=== PATIENT | male | born 1980 | race Caucasian/White ===

== ENCOUNTER 2020-04-04 06:50 | Outpatient (NON) | payer OTHER, SELFPAY ==
[2020-04-04 23:48] LABS: SARS-CoV-2 RNA PCR Negative
== END 2020-04-04 06:51 ==
LOC: ANHCOVIDDT 07:03
PROVIDERS: PCP Family Medicine; Visit Provider Nurse Practitioner Family
DX: Z20.828 Contact with and (suspected) exposure to other viral communicable diseases (principal)
CPT/HCPCS: 87635; C9803; U0003

== ENCOUNTER 2021-05-22 14:16 | Emergency (ER) | payer OTHER, SELFPAY ==
--- NOTE | ~2021-05-22 | XR_ITS ---
EXAMINATION: XR chest 1V portable EXAM DATE: 05/22/2021 20:10 INDICATION: Sternal Dull Chest Pressure,SOB,Cough,Congestion,Josh 2 COVID TECHNIQUE: Portable AP frontal chest x-ray was obtained. Comparison is made to prior examination from 04/02/2014. FINDINGS: The lungs are clear. There are no pleural effusions. The cardiomediastinal silhouette is within normal limits. There is no pneumothorax suspected. The bones and soft tissues are unremarkab le. IMPRESSION: No acute cardiopulmonary findings. Reviewed, dictated and finalized at location A. [facility]
[2021-05-22 14:34] VITALS: BP 147/96; PULSE 92; RESP 20; TEMP 36.9; O2SAT 100
[2021-05-22 19:19] VITALS: BP 140/94; PULSE 83; TEMP 36.3; O2SAT 100
[2021-05-22 19:35] VITALS: BP 132/91; PULSE 83; RESP 19; TEMP 36.7; O2SAT 99
[2021-05-22 20:48] LABS: Basophils Percent Auto 0.3 % (0.2-1.2); Hematocrit 42.7 % (42.0-52.0); Hemoglobin 14.5 g/dL (14.0-18.0); Immature Granulocyte Absolute 0.08 K/mm3 (0.00-0.031); Immature Granulocyte Percent A 2.2 % (0-0.5); Lymphocytes Absolute Auto 0.85 K/mm3 (0.9-3.2); Lymphocytes Percent Auto 22.9 % (18.3-44.2); Mean Corpuscular Hemoglobin 30.9 pg (26-34); Mean Platelet Volume 10.4 fl (7.4-10.4); Monocytes Absolute Auto 0.3 K/mm3 (0.1-0.6); Monocytes Percent Auto 9.2 % (2.6-8.5); Neutrophils Absolute Auto 2.4 K/mm3 (1.3-6.7); Neutrophils Percent Auto 65.4 % (45.5-73.1); Platelet Count Result 250 k/mm3 (150-375); Red Blood Count 4.69 M/mm3 (4.6-6.20); Red Cell Distribution Width 11.8 % (11.5-14.5); White Blood Count 3.7 K/mm3 (4.5-10.0)
[2021-05-22 20:57] LABS: Alanine Aminotransferase 20 U/L (4-50); Albumin Level 4.7 g/dL (3.5-5.1); Alkaline Phosphatase 70 U/L (38-126); Anion Gap 10 mmol/L (8-16); Aspartate Amino Transferase 29 U/L (17-59); Bilirubin,Total 0.5 mg/dL (0.2-1.3); Blood Urea Nitrogen 12 mg/dL (9-20); Calcium 9.4 mg/dL (8.4-10.2); Carbon Dioxide 27 mmol/L (22-30); Chloride 99 mmol/L (98-107); Estimated CRCL calculation 114 ml/min; Estimated Glomerular Filt Rate > 60; Glucose 112 mg/dL (65-110); Potassium 4.1 mmol/L (3.4-5.0); Sodium 136 mmol/L (137-145)
--- NOTE | 2021-05-22 20:58 | ED.URI ---
HPI - URI/Sore Throat General Chief Complaint: Upper Respiratory Infection Stated Complaint: COVID+ SOB Time Seen by Provider: 05/22/21 19:49 Source: patient Mode of arrival: ambulatory Limitations: no limitations History of Present Illness HPI Narrative: 40-year-old with no major medical problems diagnosed with Covid few days ago here with complaints of shortness of breath. Patient states that he went to urgent care was given steroids and doxycycline. Patient still continues to have body aches, fever and difficulty breathing at times however his SPO2 has been in 95- 96. He has not been vaccinated. MD elicited complaint: fever and cough Onset (ago): day(s) (4) Consistency: constant Severity: moderate Exacerbating factors: nothing Relieving factors: NSAID Treatments prior to arrival: acetaminophen and ibuprofen Related Data Home Medications Medication Instructions Recorded Confirmed Zyrtec 10 mg PO DAILY 04/21/19 04/22/19 albuterol sulfate 90 mcg/actuation 1 puff INHALATION Q4H PRN 05/26/19 aerosol inhaler multivitamin 1 tablet PO DAILY 05/26/19 omeprazole 40 mg PO PRN PRN 05/22/21 Allergies Allergy/AdvReac Type Severity Reaction Status Date / Time aspirin AdvReac Unknown Heartburn Verified 05/22/21 19:39 Review of Systems Review of Systems: All systems reviewed & are unremarkable except as noted in HPI and below Constitutional: Constitutional: Reports no additional constitutional complaints Eyes: Eyes: Reports no additional eye complaints ENT: Reports system reviewed and no additional complaints, except as documented Cardiovascular: Cardiovascular: Reports no additional cardiovascular complaints Respiratory: Respiratory: Reports as per HPI Gastrointestinal: Gastrointestinal: Reports no additional gastrointestinal complaints Musculoskeletal: Musculoskeletal: Reports no additional musculoskeletal complaints Integumentary/Breasts: Skin/Breast: Reports system reviewed and no additional complaints, except as docu Neurologic: Reports system reviewed and no additional complaints, except as documented PMFSH Past Medical History Medical History Asthma Bronchitis GERD (gastroesophageal reflux disease) Social History Social History Smoking status: Former smoker Alcohol intake: current Exam Narrative: GENERAL: Well-appearing, well-nourished, and in no acute distress. HEAD: Normocephalic, atraumatic. EYES: PERRLA and EOMI. NECK: Supple. CHEST: Clear to auscultation. No respiratory distress. HEART: Regular rate and rhythm. No murmur heard. Normal peripheral pulses.. EXTREMITIES: Normal range of motion. No edema. SKIN: Warm, dry, no rash. NEURO: No focal deficits. Alert and oriented x3. PSYCH: Normal mood and affect. Course Course Emergency Course: Inform patient about his lab work, x-ray findings. Advised him to continue to take Tylenol ibuprofen for body aches and fever. Plenty of fluids. Keep monitoring his oxygen Vital Signs Vital signs: Vital Signs Temperature 36.9 C 05/22/21 14:34 Pulse Rate 92 05/22/21 14:34 Respiratory Rate 20 05/22/21 14:34 Blood Pressure 147/96 H 05/22/21 14:34 Pulse Oximetry 100 05/22/21 14:34 Temperature 36.7 C 05/22/21 19:35 Pulse Rate 83 05/22/21 19:35 Respiratory Rate 19 05/22/21 19:35 Blood Pressure 132/91 H 05/22/21 19:35 Pulse Oximetry 99 05/22/21 19:35 MDM - URI/Sore Throat Lab Data Result diagrams: 05/22/21 20:23 05/22/21 20:23 Labs: Lab Results 05/22/21 05/22/21 Range/Units 20:23 20:23 WBC 3.7 L (4.5-10.0) K/mm3 RBC 4.69 (4.6-6.20) M/mm3 Hgb 14.5 (14.0-18.0) g/dL Hct 42.7 (42.0-52.0) % MCV 91.0 (80-100) fl MCH 30.9 (26-34) pg MCHC 34.0 (32-36) g/dl RDW 11.8 (11.5-14.5) % Plt Count 250 (150-375) k/mm3 MPV 10.4 (7.4-10.4) f
== END 2021-05-22 21:08 | disposition home or self-care (01) ==
PROVIDERS: Emergency Provider Family Medicine
DX: U07.1 COVID-19 (principal); J45.909 Unspecified asthma, uncomplicated; K21.9 Gastro-esophageal reflux disease without esophagitis
CPT/HCPCS: 36415; 71045; 80053; 85025; 99283

== ENCOUNTER 2021-12-24 15:44 | Emergency (ER) | payer OTHER, SELFPAY ==
--- NOTE | 2021-12-24 15:49 | ED.SKABFB ---
HPI - Skin/Abscess/Foreign Bdy General Chief complaint: Skin/Abscess/Foreign Body Stated complaint: INSECT BITE TO LOWER R LEG Time Seen by Provider: 12/24/21 15:49 Source: patient and RN notes reviewed Related Data Home Medications Medication Instructions Recorded Confirmed cetirizine 10 mg capsule (Zyrtec) 10 mg PO DAILY 04/21/19 04/22/19 albuterol sulfate 90 mcg/actuation 1 puff inhalation Q4H PRN 05/26/19 aerosol inhaler (ProAir HFA) Shortness Of Breath multivitamin 1 tablet PO DAILY 05/26/19 omeprazole 40 mg capsule,delayed 40 mg PO PRN PRN Heartburn 05/22/21 release Allergies Allergy/AdvReac Type Severity Reaction Status Date / Time aspirin AdvReac Unknown Heartburn Verified 05/22/21 19:39 Review of Systems Review of Systems: CONSTITUTIONAL: Denies fever, chills, or sweats. EYES: Denies visual changes, redness, or discharge. ENT: Denies rhinorrhea, congestion, sore throat, or otalgia. CARDIOVASCULAR: Denies chest pain, palpitations, or edema. RESPIRATORY: Denies cough or dyspnea. GASTROINTESTINAL: Denies abdominal pain, nausea, vomiting, or diarrhea. GENITOURINARY: Denies dysuria or hematuria. SKIN: Denies rash or itching. MUSCULOSKELETAL: Denies back pain, joint pain, or myalgia. NEUROLOGIC: Denies headache, numbness, or weakness. All other systems reviewed are negative, except as documented in HPI. [facility] Past Medical History Medical History Asthma Bronchitis GERD (gastroesophageal reflux disease) Social History Social History Smoking status: Former smoker Alcohol intake: current Comments At the time of my signature, I reviewed and agree with the nursing past medical, surgical, social, and family history. There is no relevant family history pertinent to the patient complaint. Exam Narrative: GENERAL: This is a well-nourished, well-developed patient, in no apparent distress. HEAD: normocephalic, atraumatic. EYES: PERRL. Sclera clear/white. Vision is grossly intact. EARS: External ears normal, auditory canals clear and without drainage, TMs normal without perforation. Hearing grossly intact. NOSE: External nose normal with no obvious nasal discharge, nares without redness, no rhinorrhea. THROAT: Mucous membranes moist, posterior pharynx clear. NECK: Neck supple, non-tender without lymphadenopathy, masses or thyromegaly. CARDIOVASCULAR: Regular rate and rhythm without murmurs, gallops, or rubs. RESPIRATORY: Clear to auscultation. Breath sounds equal bilaterally. No wheezes, rales, or rhonchi. GASTROINTESTINAL: Abdomen soft, non-tender, nondistended. Bowel sounds are active. No hepato-splenomegaly, or palpable masses. No guarding. SKIN: warm, intact with no suspicious lesions or rash, good texture and turgor. NEURO: awake, alert, and oriented to person, place and time. There were no obvious focal neurologic abnormalities. EXTREMITIES: No clubbing, cyanosis, or edema. No joint tenderness, effusion, or edema noted. No calf tenderness. Negative Homans sign bilaterally. BACK: Nontender without deformity or crepitance. No flank tenderness. Course Course Level of Care: Express Care Visit Vital Signs Vital signs: Vital Signs Temperature 98.7 F 12/24/21 15:51 Pulse Rate 89 12/24/21 15:51 Respiratory Rate 16 12/24/21 15:51 Blood Pressure 131/93 H 12/24/21 15:51 Pulse Oximetry 100 12/24/21 15:51 Oxygen Delivery Room Air 12/24/21 15:51 Temperature 98.7 F 12/24/21 15:51 Pulse Rate 89 12/24/21 15:51 Respiratory Rate 16 12/24/21 15:51 Blood Pressure 131/93 H 12/24/21 15:51 Pulse Oximetry 100 12/24/21 15:51 Oxygen Delivery Room Air 12/24/21 15:51 Reviewed-patient is informed that they may have pre-hypertension or hypertension based on a blood pressure reading in the department. I recommend the patient call the primary care provider listed on their discharge i
[2021-12-24 15:51] VITALS: BP 131/93; PULSE 89; RESP 16; TEMP 37.1; O2SAT 100
--- NOTE | 2021-12-24 16:11 | ED.SKABFB ---
HPI - Skin/Abscess/Foreign Bdy General Chief complaint: Skin/Abscess/Foreign Body Stated complaint: INSECT BITE TO LOWER R LEG Time Seen by Provider: 12/24/21 15:49 Source: patient and RN notes reviewed History of Present Illness HPI narrative: Patient is a 41-year-old male who presents the urgent care with complaints of an insect bite to the right lower leg. Patient states that he noticed it early last week after he had been out in [place]. Patient states he never removed the tick but does believe that he may have gotten bitten by something while in [place]. Patient states that it itches and is seem to have grown in size and redness in the last few days. Patient states he has been taking Benadryl and using cortisone cream. Denies any fever, headache, fatigue or lethargy. No other acute complaints. No acute distress noted. Patient aware of the plan of care. Some parts of this dictation were generated by voice recognition software and may contain typographical and/or grammatical inaccuracies. Related Data Home Medications Medication Instructions Recorded Confirmed cetirizine 10 mg capsule (Zyrtec) 10 mg PO DAILY 04/21/19 04/22/19 albuterol sulfate 90 mcg/actuation 1 puff inhalation Q4H PRN 05/26/19 aerosol inhaler (ProAir HFA) Shortness Of Breath multivitamin 1 tablet PO DAILY 05/26/19 omeprazole 40 mg capsule,delayed 40 mg PO PRN PRN Heartburn 05/22/21 release Allergies Allergy/AdvReac Type Severity Reaction Status Date / Time aspirin AdvReac Unknown Heartburn Verified 05/22/21 19:39 Review of Systems Review of Systems: CONSTITUTIONAL: Denies fever, chills, or sweats. EYES: Denies visual changes, redness, or discharge. ENT: Denies rhinorrhea, congestion, sore throat, or otalgia. CARDIOVASCULAR: Denies chest pain, palpitations, or edema. RESPIRATORY: Denies cough or dyspnea. GASTROINTESTINAL: Denies abdominal pain, nausea, vomiting, or diarrhea. GENITOURINARY: Denies dysuria or hematuria. SKIN: Reports of an insect bite to the right lower leg MUSCULOSKELETAL: Denies back pain, joint pain, or myalgia. NEUROLOGIC: Denies headache, numbness, or weakness. All other systems reviewed are negative, except as documented in HPI. PMFSH Past Medical History Medical History Asthma Bronchitis GERD (gastroesophageal reflux disease) Social History Social History Smoking status: Former smoker Alcohol intake: current Comments At the time of my signature, I reviewed and agree with the nursing past medical, surgical, social, and family history. There is no relevant family history pertinent to the patient complaint. Exam Narrative: GENERAL: This is a well-nourished, well-developed patient, in no apparent distress. HEAD: normocephalic, atraumatic. EYES: PERRL. Sclera clear/white. Vision is grossly intact. EARS: External ears normal NOSE: External nose normal with no obvious nasal discharge, nares without redness, no rhinorrhea. THROAT: Mucous membranes moist NECK: Neck supple, SKIN: 2.5 irregular erythemic bull's-eye rash to the right medial calf. Warm, intact with no suspicious lesions or rash, good texture and turgor. NEURO: awake, alert, and oriented to person, place and time. There were no obvious focal neurologic abnormalities. EXTREMITIES: No clubbing, cyanosis, or edema. Course Course Level of Care: Express Care Visit Vital Signs Vital signs: Vital Signs Temperature 98.7 F 12/24/21 15:51 Pulse Rate 89 12/24/21 15:51 Respiratory Rate 16 12/24/21 15:51 Blood Pressure 131/93 H 12/24/21 15:51 Pulse Oximetry 100 12/24/21 15:51 Oxygen Delivery Room Air 12/24/21 15:51 Temperature 98.7 F 12/24/21 15:51 Pulse Rate 89 12/24/21 15:51 Respiratory Rate 16 12/24/21 15:51 Blood Pressure 131/93 H 12/24/21 15:51 Pulse Oximetry 100 12/24/21 15:51 Oxygen Delivery Room Air
== END 2021-12-24 16:21 | disposition home or self-care (01) ==
PROVIDERS: Emergency Provider Nurse Practitioner Family; PCP Family Medicine
DX: S80.861A Insect bite (nonvenomous), right lower leg, initial encounter (principal); W57.XXXA Bitten or stung by nonvenomous insect and other nonvenomous arthropods, initial encounter; Z87.891 Personal history of nicotine dependence; J45.909 Unspecified asthma, uncomplicated; K21.9 Gastro-esophageal reflux disease without esophagitis
CPT/HCPCS: 99213; G0463

== ENCOUNTER 2023-08-16 10:36 | Emergency (ER) | payer OTHER, SELFPAY ==
--- NOTE | 2023-08-16 10:42 | ED.GENADULT ---
HPI - General Adult General Chief complaint: Upper Respiratory Infection Stated complaint: SORE THROAT/COUGH/FEVER/CONGESTION Time Seen by Provider: 08/16/23 10:42 Source: patient Mode of arrival: ambulatory Limitations: no limitations History of Present Illness HPI narrative: 43-year-old male patient presents to the [facility] with complaints of fevers, body aches, chills, cough, runny nose and congestion for the past 3 days. Patient states his son had something similar and lasted for about 3 days and then he is much better at this time. Patient states he thinks he has been running fevers but has not measured his temperature. Patient states he has had some diarrhea denies any abdominal pain denies any vomiting or nausea currently. Patient states he has been taking [id number] Tylenol and ibuprofen for symptoms. Related Data Home Medications Medication Instructions Recorded Confirmed sertraline 25 mg tablet 25 mg PO DAILY 08/16/23 08/16/23 Allergies Allergy/AdvReac Type Severity Reaction Status Date / Time aspirin AdvReac Unknown Heartburn Verified 08/16/23 10:55 Review of Systems Review of Systems: CONSTITUTIONAL: Positive fever, chills, body aches and sweats. EYES: Denies visual changes, redness, or discharge. ENT: positive rhinorrhea, congestion, sore throat, deniesotalgia. CARDIOVASCULAR: Denies chest pain, palpitations, or edema. RESPIRATORY: positive cough , denies dyspnea. GASTROINTESTINAL: Denies abdominal pain, nausea, vomiting, positive diarrhea. GENITOURINARY: Denies dysuria or hematuria. SKIN: Denies rash or itching. MUSCULOSKELETAL: Denies back pain, joint pain, or myalgia. NEUROLOGIC: Denies headache, numbness, or weakness. PSYCHIATRIC: Denies anxiety or depression. [facility] Past Medical History Medical History (Updated 08/16/23 @ 11:30 by GERSON Apodaca) Anxiety Asthma Bronchitis GERD (gastroesophageal reflux disease) Social History Social History Smoking status: Former smoker Alcohol intake: current Comments at the time of my signature I agree with nursing past medical history, surgical, social, and family history. There is no relevant family history pertinent to the presenting complaint. Exam Narrative: GENERAL: Well-appearing, well-nourished, and in no acute distress. HEAD: Normocephalic, atraumatic. EYES: PERRLA and EOMI. ENT: Nares with edema and left nostril completely swollen shut, clear rhinorrhea no epistaxis. Mucous membranes moist. posterior pharynx with slight erythema and postnasal drip. No tonsillar enlargement, no exudates or lesions present. Bilateral TMs are clear no erythema or foreign bodies the canal. NECK: Supple. No lymphadenopathy CHEST: Clear to auscultation. No respiratory distress. HEART: Regular rate and rhythm. No murmur heard. Normal peripheral pulses. ABDOMEN: Soft, nontender, nondistended, normal active bowel sounds. EXTREMITIES: Normal range of motion. No edema. SKIN: Warm, dry, no rash. NEURO: No focal deficits. Alert and oriented x3. Course Course Level of Care: Express Care Visit Reevaluation(s) Reevaluation #1: Re-evaluated patient notified him he has positive today for influenza B. Patient is within the time frame to receiving antivirals and did offer him Tamiflu for symptoms. Discussed with him the benefits and risk of taking the Tamiflu as well as side effects. Patient has opted to go ahead and start the antiviral treatment. Patient denies needing a work note for the next couple of days. Date: 08/16/23 Time: 11:33 Vital Signs Vital signs: Vital Signs Temperature 35.7 C L 08/16/23 10:43 Pulse Rate 78 08/16/23 10:43 Respiratory Rate 16 08/16/23 10:43 Blood Pressure 126/75 08/16/23 10:43 Pulse Oximetry 99 08/16/23 10:43 Temperature 35.7 C L 08/16/23 10:43 Pulse Rate 78 08/16/23 10:43 Respiratory Rate 16 08/16/23 10:43
[2023-08-16 10:43] VITALS: BP 126/75; PULSE 78; RESP 16; TEMP 35.7; O2SAT 99
== END 2023-08-16 11:34 | disposition home or self-care (01) ==
PROVIDERS: Emergency Provider Nurse Practitioner Family
DX: J10.1 Influenza due to other identified influenza virus with other respiratory manifestations (principal); Z20.822 Contact with and (suspected) exposure to COVID-19; K21.9 Gastro-esophageal reflux disease without esophagitis; F41.9 Anxiety disorder, unspecified
CPT/HCPCS: 87081; 87426; 87804; 87880; 99213; G0463

== ENCOUNTER 2023-12-31 14:41 | Emergency (ER) | payer OTHER, SELFPAY ==
--- NOTE | ~2023-12-31 | XR_ITS ---
XR finger 2nd LT min 2V Ordering provider: Nika Willoughby APRN History: . pt cut tip in finger with hammer,skin flap deep laceration . Comparison: None. FINDINGS: BONES: No acute fracture or dislocation. JOINT SPACES: Normal. SOFT TISSUES: Normal. IMPRESSION: No acute osseous abnormality. Reviewed, dictated and finalized at location A.
[2023-12-31 14:50] VITALS: BP 134/86; PULSE 89; RESP 14; TEMP 36.6; O2SAT 99
--- NOTE | 2023-12-31 17:43 | ED.GENADULT ---
HPI - General Adult General Chief complaint: Wound/Laceration Stated complaint: Left Index Finger Injury Time Seen by Provider: 12/31/23 14:59 Source: patient, RN notes reviewed and old records reviewed Mode of arrival: ambulatory Limitations: no limitations History of Present Illness HPI narrative: 43-year-old male to Express Care with complaint of left distal thumb pain. Patient reports that he accidentally smashed distal left thumb with a rubber mallet earlier today. Patient reports having a part of his fingertip hanging off after injury that he removed with scissors from his 1st aid kit. Patient states that he then used livestock bleed stop On the wound to help discontinue bleeding. Patient states that he had intentions of not seeking care but that his fiancee insisted he be seen in clinic. Patient endorsing mild discomfort to left distal thumb. Patient denies decrease in range of motion, numbness, tingling, weakness. patient calm cooperative in exam room. Patient in no acute distress. Related Data Allergies Allergy/AdvReac Type Severity Reaction Status Date / Time aspirin AdvReac Unknown Heartburn Verified 12/31/23 16:31 Review of Systems Review of Systems: All systems reviewed & are unremarkable except as noted in HPI and below Constitutional: Constitutional: Reports no additional constitutional complaints Eyes: Eyes: Reports no additional eye complaints ENT: Reports system reviewed and no additional complaints, except as documented Cardiovascular: Cardiovascular: Reports no additional cardiovascular complaints, Denies chest pain and Denies dyspnea Respiratory: Respiratory: Reports no additional respiratory complaints, Denies cough and Denies dyspnea Musculoskeletal: Musculoskeletal: Reports no additional musculoskeletal complaints Neurologic: Reports system reviewed and no additional complaints, except as documented Psychiatric: Psychiatric: Reports no additional psychiatric complaints PMF Past Medical History Medical History (Updated 12/31/23 @ 16:07 by Nika Willoughby APRN) Anxiety Asthma Bronchitis GERD (gastroesophageal reflux disease) Social History Social History Smoking status: Former smoker Alcohol intake: current Comments At the time of my signature, I reviewed and agree with the nursing past medical, surgical, social, and family history. There is no relevant family history pertinent to the patient complaint. Exam Const: General: cooperative, healthy appearing, comfortable, no acute distress, alert and well nourished Nutritional Appearance: well nourished Orientation/consciousness: patient oriented x3 Limitations: no limitations HENMT: Head: normal to inspection Ears: external ears normal Face/Nose/Sinus: Normal external nose present, Normal nares present, normal facial exam, No erythema and No edema Face and sinus: normal facial exam, no erythema and no edema Mouth: Yes Normal oral and palatal mucosa present Eyes: General: appearance normal, both eyes and all related structures Neck: Neck: normal visual inspection, full ROM and no meningeal signs Lymphatic: no lymphadenopathy noted and no lymphedema noted Chest: Chest palpation & inspection: normal inspection of the chest Resp: Effort & Inspection: normal respiratory effort and able to speak in complete sentences Auscultation: clear to auscultation bilaterally Cardio: Jugular venous distension: no JVD Rate: regular rate Rhythm: regular rhythm Back/Spine/Pelvis: Cervical Spine: cervical ROM normal Skin: General skin exam: normal color, no rashes or lesions noted and turgor normal Neuro: General: patient oriented x3, gait normal, moves all extremities and no meningeal signs Speech: normal speech Gait exam (Neuro): Normal gait present Extrem: General: normal to inspection, full ROM and capillary refill normal Psych: Appearance: grossly normal and well k
== END 2023-12-31 16:15 | disposition home or self-care (01) ==
PROVIDERS: Emergency Provider Nurse Practitioner Family
DX: S61.002A Unspecified open wound of left thumb without damage to nail, initial encounter (principal); W27.8XXA Contact with other nonpowered hand tool, initial encounter; F41.9 Anxiety disorder, unspecified; J45.909 Unspecified asthma, uncomplicated; K21.9 Gastro-esophageal reflux disease without esophagitis; Z87.891 Personal history of nicotine dependence
CPT/HCPCS: 73140; 99213; G0463